=== PATIENT | male | born 1995 | race Caucasian/White ===

== ENCOUNTER 2017-03-05 16:56 | Emergency (ER) | payer BC, OTHER ==
[2017-03-05 17:09] VITALS: BP 145/85; PULSE 92; RESP 16; TEMP 98.2; O2SAT 98
--- NOTE | 2017-03-05 17:28 | EDPHY ---
H & P Stated Complaint: Lac to upper back last pm;was intoxicated;thinks he fells against step Time Seen by Provider: 03/05/17 17:27 HPI/ROS: HPI: This is a 21-year-old male who presents with Chief Complaint: Lac to upper back last pm;was intoxicated;thinks he fells against step Location: Upper left back Quality: Laceration Duration: Around 1 or 2:00 a.m. (15 hours prior to arrival) Signs and Symptoms: No LOC, no neck pain, no back pain, No bleeding, no radiation, no numbness, no weakness, no tingling, no incontinence, no decreased range of motion, no swelling Timing: Acute Severity: [id number] Context: Patient reports that he was intoxicated last night and around 1 or 2: 00 a.m. this morning he accidentally slipped down some stairs cutting his left upper back. He denies losing consciousness/head injury/neck pain. He woke up this afternoon and noticed the laceration. His mother found at this evening and brought him to the emergency room for further evaluation. Reports his tetanus is up-to-date. He denies any back pain or difficulty ambulating. Mother reports that he is at his baseline mentation. Modifying Factors: No wound care has been provided Comment: ROS: see HPI Constitutional: No fever, no chills, no weight loss Eyes: No blurred vision Respiratory: No shortness of breath, no cough Cardiovascular: No chest pain Gastrointestinal: No nausea, no vomiting no diarrhea Genitourinary: No dysuria Extremities: No myalgias Neurologic: No weakness, no numbness Skin: No rashes Hematologic: No bruising, no bleeding MEDICAL/SURGICAL/SOCIAL HISTORY: Medical history: Generally healthy. Does not take any regular medications. Surgical history: Denies Social history: Student CONSTITUTIONAL: Teenage white male, talkative well-appearing, awake and alert, no obvious distress HEENT: Atraumatic and normocephalic. NECK: supple, no midline tenderness, flexion 45 degrees, extension 45 degrees, right and left lateral flexion 45 degrees. No meningismus. Cardiovascular: Normal S1/S2, regular rate, regular rhythm, without murmur rub or gallop. PULMONARY/CHEST: Symmetrical and nontender. no crepitus. Clear to auscultation bilaterally. Good air movement. No accessory muscle usage. ABDOMEN: Soft, nondistended, nontender, no ecchymosis. PELVIC: no pain with rocking; bilateral hips flexion 125 degrees, extension 30 degrees, with no pain internal rotation and no pain external rotation. BACK: No midline tenderness, no paraspinous spasm, deep tendon reflexes 2/2, no pain with straight leg raise EXTREMITIES: 2/2 pulses, no deformities, no clubbing, no cyanosis or edema. NEUROLOGICAL: no focal neuro deficits. GCS 15. Light touch sensation intact. SKIN: Warm and dry, 8 cm superficial linear laceration over left scapula; no bleeding/erythema/discharge. no rash. Good capillary refill. Source: Patient Exam Limitations: No limitations - Medical/Surgical History Other PMH: Adhd Constitutional: Initial Vital Signs Temperature (C) 36.8 C 03/05/17 17:05 Heart Rate 92 03/05/17 17:05 Respiratory Rate 16 03/05/17 17:05 Blood Pressure 145/85 H 03/05/17 17:05 O2 Sat (%) 98 03/05/17 17:05 O2 Delivery Mode Room Air Allergies/Adverse Reactions: No Known Allergies Allergy (Unverified 03/05/17 17:04) Home Medications: Medication Instructions Recorded Amphet Asp and D/Amphet [Adderall 10 mg PO 03/05/17 10 MG (*)] Medical Decision Making Procedures: Procedure: Laceration repair. Verbal consent was obtained from the patient. The simple 8 cm linear laceration on the left upper back was anesthetized in the usual fashion. The wound was irrigated, draped and explored to its base with a gloved finger. There were no deep structures involved. No foreign bodies were identified. The wound was repaired with #16, 5 0 Prolene in simple interrupted pattern. Good hemostasis was achieved and patient tolerated procedure well. Clean sterile dressing applied. The procedure was performed by myself. ED Course/Re-evaluation: Fall was accidental in nature. No LOC. Tetanus up-to-date. Wound was copiously irrigated and is approximately 15 hours old. Laceration repair using 16 sutures; Steri-Strips applied and then clean sterile dressing. Verbal and written suture care and wound care provided to patient mother. Differential Diagnosis: Differential diagnosis includes but is not limited to contusion, thoracic strain , laceration. Departure - Departure Disposition: Home, Routine, Self-Care Clinical Impression: Laceration of back Qualifiers: Encounter type: initial encounter Laterality: left Qualified Code(s): S21.212A - Laceration without foreign body of left back wall of thorax without penetration into thoracic cavity, initial encounter Condition: Good Instructions: Care For Your Stitches (ED), Laceration (ED), Alcohol Intoxication (ED) Additional Instructions: Keep the dressing in place for 48 hours. After 48 hours, you may remove the dressing; wash the site daily with mild soap and water; then pat dry. Take ibuprofen 600 mg every 8 hours with food as needed for pain and inflammation. Please return to the emergency room in 7-10 days to have your sutures removed. Referrals: Darrel Garcia MD [Primary Care Provider] - As per Instructions
== END 2017-03-05 18:41 | disposition home or self-care (01) ==
PROC: 0HQ6XZZ Repair Back Skin, External Approach (ICD-10-PCS; principal; 2017-03-05)
DX: S21.212A Laceration without foreign body of left back wall of thorax without penetration into thoracic cavity, initial encounter (principal); W10.9XXA Fall (on) (from) unspecified stairs and steps, initial encounter; Y99.8 Other external cause status